=== PATIENT | male | born 1995 | race Native Hawaiian/Other Pacific Islander ===

== ENCOUNTER 2016-12-05 19:16 | Emergency (ER) | payer OTHER ==
[~2016-12-05] VITALS: Ht 172.7 cm; Wt 83.0 kg
== END 2016-12-05 19:50 | disposition home or self-care (01) ==
LOC: ED 19:16 → EDBD 19:16 → ED 19:50
DX: Z20.2 Contact with and (suspected) exposure to infections with a predominantly sexual mode of transmission (principal)
CPT/HCPCS: 99281

== ENCOUNTER 2018-02-19 23:38 | Emergency (ER) | payer BC ==
[~2018-02-19] VITALS: Ht 170.2 cm; Wt 83.9 kg
== END 2018-02-19 23:50 | disposition home or self-care (01) ==
LOC: ED 23:38
DX: R19.03 Right lower quadrant abdominal swelling, mass and lump (principal)
CPT/HCPCS: 99281